=== PATIENT | male | born 1955 | race Caucasian/White ===

== ENCOUNTER → 2016-07-01 | Emergency (ER) | payer OTHER ==
[~2016-07-01] VITALS: Ht 175.3 cm; Wt 106.0 kg
[~2016-07-01] MED LIST: HYDROmorphone 1 MG/ML (DILAUDID) SYRINGE IM ONE; ONDANSETRON 4 MG (ZOFRAN) ORAL DISSOLVE TAB PO ONE; ORPHENADRINE 60 MG/2 ML (NORFLEX) AMP IM ONE
[2016-07-01 12:01] VITALS: BP 153/100
== END | disposition home or self-care (01) ==
LOC: EDUNIT# 11:51 → ED 11:55
DX: M54.42 Lumbago with sciatica, left side (principal)
CPT/HCPCS: 96372; 99283; J1170; J2360; 99282

== ENCOUNTER 2016-07-06 09:45 | Outpatient (RCR) | payer OTHER ==
[~2016-07-06 09:45] MED LIST changes: +ADAL40PE SQ; +ARMO250T6; +CYCL10TA45 PO; -HYDROmorphone 1 MG/ML (DILAUDID) SYRINGE IM ONE; +METF850T2; +MULT1TAB69 PO; +NF-TORA10 PO; +OMG1KC PO; -ONDANSETRON 4 MG (ZOFRAN) ORAL DISSOLVE TAB PO ONE; -ORPHENADRINE 60 MG/2 ML (NORFLEX) AMP IM ONE; +TRAM-291ED
--- NOTE | 2016-07-10 11:05 | PT/OT/ST INITIAL EVALUATION ---
Department of Health and Human Services Form Approved [facility] Care Financing Administration OMB No. [id number] PLAN OF CARE/ASSESSMENT FOR OUTPATIENT REHABILITATION (Complete for Initial Claims Only) 1. PATIENT'S NAME Jean Mancilla 2. ACC # [id number] 3. HICN NA 4. PROVIDER NO. [id number] 5. TYPE: PT 6. PRIOR HOSPITALIZATION NA 7. PRIMARY DX Left lumbosacral radiculopathy. 8. SECONDARY DX NA 9. ONSET DATE 06/29/2016 10. REFERRAL DATE 07/04/2016 11. SOC. DATE 07/05/2016 12. TIME OF EVAL 8:19 a.m. 12. REFERRING PHYSICIAN Dr. Freddy Villa 13. CHARGES/UNITS 89448, moderate complexity [place] [address] for manual therapy [place] [address] therapeutic exercise 14. G CODES NA 15. PRIOR LEVEL OF FUNCTION; PERTINENT HISTORY (Prior therapy results, reason for referral.) S: Prior to therapy, the patient did consent to today's evaluation and treatment. The patient is a 60-year-old male referred by Dr. Freddy Villa, who began experiencing pain in his lower back just above his left hip around 06/29/2016 with a nontraumatic onset. The patient does note his pain did start out as a twinge in the left low back and has progressed after a long car ride out of state. The patient is currently been off work since the initial flare up of pain. 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 He also has to do bending and twisting as part of his job. The patient does work four 10-hour shifts a week. Current level of function: As stated above, the patient has been off work since this injury. The patient also notes significant difficulty with sitting for longer periods than 10 minutes at a time and has impaired gait sequencing since this as well. Therapy History: No prior therapy for this specific issue. Pain level: Current pain level is 7/10 and it is described as a burning pain and cramping that does radiate from the left low back into the left lower extremity. Aggravating factors: The pain is aggravated by sitting or turning. Relieving factors: It is relieved by standing or walking for 5 to 10 minutes. Diagnostic testing: The patient does hope to undergo an MRI on 07/06/2016. Past medical history: Rheumatoid arthritis with early onset of approximately 30 years ago, foot problems, arthritis, removal of a cyst at his left wrist, diabetes mellitus and sleep apnea in which he utilizes his CPAP for it. Current medications: The patient takes Humira and armodafinil. The patient is also taking Toradol and just started taking [place] for pain. Activity level: The patient reports as moderate. Personal health rating: Fair Leisure activities: Include fishing, camping, and painting. Patient's Goal: The patient's goal is to alleviate pain. 16. INITIAL ASSESSMENT/SAFETY PRECAUTIONS/MEDICAL COMPLICATIONS (Level of function at start of care. Be specific, use objective measures, list problems.) O: APPEARANCE AND OBSERVATION: The patient demonstrates increased lumbar lordosis. He does have foot-flat positioning with gait and increased lateral trunk sway with gait as well. The patient does maintain weightbearing on the right lower extremity to decrease weight through the left lower extremity. He has sitting tolerance of less than 2 minutes at a time without needing to stand up. PALPATION: Tightness in the bilateral lumbar paraspinals, greatest along the left posterior iliac crest, left superior gluteal and SI joints. SPECIAL TESTS: Positive straight leg raise test on the left for increased back pain and nerve tension. Unable to assess slump test secondary to pain and decreased sitting tolerance. The patient scores a 23/50 on the modified Oswestry pain index for 46% disability. RANGE OF MOTION/FLEXIBILITY: Lumbar range of motion in flexion is painful and limited by 50%. He is able to complete lumbar side bending and extension without limitations. Hamstring length on the left was limited secondary to nerve tension; therefore, a formal assessment was not completed. STRENGTH: Right hip flexion 4+/5, left 4+/5. Knee flexion 4/5 bilaterally. Knee extension 5/5. Ankle dorsiflexion 5/5. Right hip abduction 3/5, left 5/5. TODAY'S TREATMENT: Today's treatment consisted of educating the patient on the findings of the evaluation and recommended treatment plan. The patient was started on manual therapy techniques to decreased muscle tightness, pain and improve mobility in the lumbar spine. The therapist also initiated the patient on lower trunk rotation and single knee to chest stretching per patient tolerance. He was provided a home exercise program and educated to complete this daily as long as it did not cause exacerbation of symptoms. 17. INITIAL POC: (Specify procedures, modalities, short and terminal clerk goals) A: The patient presents to physical therapy with an acute onset of left-sided low back and left lower extremity pain. The patient has significant lower extremity weakness around the proximal hip musculature, greatest in the gluteal, significant muscle tightness in the lumbar paraspinals, and impaired sitting tolerance greater than 5 to 10 minutes at a time when not in therapy. The patient does have a good outcome in physical therapy with regular attendance and compliance with his home exercise program. INFORMED CONSENT: The diagnosis, prognosis, treatment plan, risks and expected outcomes were discussed with the patient and he is agreeable to today's established plan of care. SHORT TERM GOALS X2 WEEKS: 1. The patient will be able to tolerate sitting for 5 minutes without an increase in pain. 2. The patient will have a 25% decrease in left lower extremity radicular symptoms and frequency of pain. 3. The patient will demonstrate the ability to maintain transverse abdominis contraction for 30 seconds to improve core stabilization. FILING WRITER GOALS X4 WEEKS: 1. The patient will have a Modified Oswestry score of less than or equal to 15/50 to demonstrate and improve functional mobility. 2. The patient will improve bilateral hip flexion, knee flexion, strength to be 5/5. Right hip abduction strength to be a minimum of 4/5. 3. The patient will have pain no greater than a 4/10 with work-related tasks. 4. The patient will demonstrate proper core stabilization and proper lifting mechanics in order to safely return to work. P: Plan to treat this patient 3 times a week for 4 weeks to address low back pain, greatest on the left side with left lower extremity radicular symptoms, lower extremity weakness, and impaired sitting tolerance. Treatment will include modalities as needed, however, iontophoresis was not utilized this date secondary to the patient having a recent injection in the low back. Manual therapy techniques will be utilized including joint mobilization and myofascial release, as well as soft tissue and deep tissue mobilization. Mechanical traction may be utilized as the patient initially tolerates manual traction. Therapeutic exercise will be utilized to initially improve lumbar range of motion with progressing strengthening of the core musculature and lower extremities. Functional training will be utilized to improve proper body mechanics with lifting related activities. The patient was provided a home exercise program and this will be progressed as needed. Thank you for the referral of this patient. 18. FREQUENCY 3 times a week 19. DURATION 4 weeks 20. FUNCTIONAL LEVEL (End of claim period) 21. PHYSICIAN SIGNATURE ? ON FILE OR ENTER HERE: 22. DATE: I certify the need for these services furnished under this plan of care and if for partial hospitalization. 23. CERTIFICATION FROM THROUGH FORM [id number]
== END 2016-07-13 12:00 | disposition home or self-care (01) ==
LOC: PT 09:45
PROVIDERS: ATTEND Family Medicine
DX: M54.17 Radiculopathy, lumbosacral region (principal)

== ENCOUNTER → 2016-07-06 | Outpatient (CLI) | payer OTHER | LOC: RAD 12:41 | PROVIDERS: ATTEND Family Medicine | DX: M54.16 Radiculopathy, lumbar region (principal); M51.36 Other intervertebral disc degeneration, lumbar region | CPT/HCPCS: 72148 ==